=== PATIENT | male | born 1995 | race African-American/Black ===

== ENCOUNTER 2016-11-05 17:03 | Emergency (ER) | payer OTHER | END 2016-11-05 18:47 | disposition home or self-care (01) | LOC: ER 17:03 | DX: S93.491A Sprain of other ligament of right ankle, initial encounter (principal); W01.0XXA Fall on same level from slipping, tripping and stumbling without subsequent striking against object, initial encounter; M76.9 Unspecified enthesopathy, lower limb, excluding foot ==